=== PATIENT | female | born 1990 | race Caucasian/White ===

== ENCOUNTER 2020-09-07 07:17 | Outpatient (CLI) | payer OTHER, SELFPAY ==
[2020-09-07 07:44] LABS: Basophils Absolute Auto 0.1 K/mm3 (0.0-0.1); Basophils Percent Auto 0.9 % (0.2-1.2); Eosinophils Absolute Auto 0.1 K/mm3 (0-0.3); Eosinophils Percent Auto 0.9 % (0-4.4); Hematocrit 44.4 % (37.0-47.0); Hemoglobin 15.4 g/dL (12.0-15.0); Immature Granulocyte Absolute 0.02 K/mm3 (0.00-0.031); Immature Granulocyte Percent A 0.3 % (0-0.5); Lymphocytes Absolute Auto 1.89 K/mm3 (0.9-3.2); Lymphocytes Percent Auto 32.4 % (18.3-44.2); Mean Corpuscular HGB Conc 34.7 g/dl (32-36); Mean Corpuscular Hemoglobin 30.8 pg (26-34); Mean Corpuscular Volume 88.8 fl (80-100); Monocytes Absolute Auto 0.4 K/mm3 (0.1-0.6); Monocytes Percent Auto 7.2 % (2.6-8.5); Neutrophils Absolute Auto 3.4 K/mm3 (1.3-6.7); Neutrophils Percent Auto 58.3 % (45.5-73.1); Platelet Count Result 203 k/mm3 (150-375); Red Cell Distribution Width 11.8 % (11.5-14.5); White Blood Count 5.8 K/mm3 (4.5-10.0)
[2020-09-07 07:57] LABS: Alanine Aminotransferase 17 U/L (4-35); Albumin Level 4.7 g/dL (3.5-5.1); Alkaline Phosphatase 48 U/L (38-126); Anion Gap 9 mmol/L (8-16); Aspartate Amino Transferase 28 U/L (14-36); Bilirubin,Total 0.8 mg/dL (0.2-1.3); Blood Urea Nitrogen 14 mg/dL (7-17); Carbon Dioxide 26 mmol/L (22-30); Chloride 104 mmol/L (98-107); Estimated Glomerular Filt Rate > 60; Glucose 100 mg/dL (65-105); Potassium 3.9 mmol/L (3.4-5.0); Sodium 139 mmol/L (137-145)
[2020-09-07 08:28] LABS: Thyroid Stimulating Hormone 0.978 uIU/mL (0.465-4.680)
== END 2020-09-07 07:18 | disposition home or self-care (01) ==
LOC: ANHLAB 07:23
PROVIDERS: PCP Family Medicine; Visit Provider Obstetrics & Gynecology
DX: R53.83 Other fatigue (principal)
CPT/HCPCS: 36415; 80053; 84443; 85025

== ENCOUNTER 2021-04-21 08:43 | Outpatient (CLI) | payer OTHER, SELFPAY ==
[2021-04-21 11:07] LABS: Basophils Absolute Auto 0.1 K/mm3 (0.0-0.1); Basophils Percent Auto 0.7 % (0.2-1.2); Eosinophils Absolute Auto 0.1 K/mm3 (0-0.3); Eosinophils Percent Auto 1.2 % (0-4.4); Hematocrit 39.2 % (37.0-47.0); Immature Granulocyte Absolute 0.02 K/mm3 (0.00-0.031); Immature Granulocyte Percent A 0.3 % (0-0.5); Lymphocytes Absolute Auto 2.54 K/mm3 (0.9-3.2); Lymphocytes Percent Auto 34.9 % (18.3-44.2); Mean Corpuscular HGB Conc 33.2 g/dl (32-36); Mean Corpuscular Hemoglobin 30.4 pg (26-34); Mean Corpuscular Volume 91.6 fl (80-100); Mean Platelet Volume 10.1 fl (7.4-10.4); Monocytes Absolute Auto 0.5 K/mm3 (0.1-0.6); Monocytes Percent Auto 6.6 % (2.6-8.5); Neutrophils Absolute Auto 4.1 K/mm3 (1.3-6.7); Neutrophils Percent Auto 56.3 % (45.5-73.1); Platelet Count Result 240 k/mm3 (150-375); Red Blood Count 4.28 M/mm3 (4.2-5.4); Red Cell Distribution Width 12.4 % (11.5-14.5); White Blood Count 7.3 K/mm3 (4.5-10.0)
[2021-04-21 11:16] LABS: Anion Gap 7 mmol/L (8-16); Blood Urea Nitrogen 12 mg/dL (7-17); Calcium 8.9 mg/dL (8.4-10.2); Carbon Dioxide 29 mmol/L (22-30); Chloride 100 mmol/L (98-107); Estimated Glomerular Filt Rate > 60; Glucose 87 mg/dL (65-110); Potassium 3.4 mmol/L (3.4-5.0); Sodium 136 mmol/L (137-145)
[2021-04-21 11:53] LABS: Thyroid Stimulating Hormone Reflex 0.965 uIU/mL (0.465-4.68)
== END 2021-04-21 08:44 | disposition home or self-care (01) ==
PROVIDERS: PCP Family Medicine; Visit Provider Family Medicine
DX: R53.81 Other malaise (principal)
CPT/HCPCS: 36415; 80048; 84443; 85025

== ENCOUNTER 2021-10-04 16:33 | Outpatient (CLI) | payer OTHER, SELFPAY ==
[2021-10-04 18:01] LABS: Anion Gap 11 mmol/L (8-16); Blood Urea Nitrogen 17 mg/dL (7-17); Calcium 9.4 mg/dL (8.4-10.2); Carbon Dioxide 30 mmol/L (22-30); Chloride 97 mmol/L (98-107); Estimated Glomerular Filt Rate > 60; Glucose 120 mg/dL (65-110); Sodium 138 mmol/L (137-145)
== END 2021-10-04 16:34 | disposition home or self-care (01) ==
LOC: ANHLAB 16:36
PROVIDERS: PCP Family Medicine; Visit Provider Family Medicine
DX: E87.6 Hypokalemia (principal)
CPT/HCPCS: 36415; 80048

== ENCOUNTER 2021-10-21 07:45 | Outpatient (CLI) | payer OTHER, SELFPAY ==
[2021-10-21 09:08] LABS: Anion Gap 9 mmol/L (8-16); Blood Urea Nitrogen 13 mg/dL (7-17); Calcium 8.8 mg/dL (8.4-10.2); Carbon Dioxide 25 mmol/L (22-30); Chloride 106 mmol/L (98-107); Estimated Glomerular Filt Rate > 60; Glucose 99 mg/dL (65-110); Magnesium 2.2 mg/dL (1.6-2.3); Potassium 3.9 mmol/L (3.4-5.0); Sodium 140 mmol/L (137-145)
== END 2021-10-21 07:46 | disposition home or self-care (01) ==
LOC: ANHLAB 07:49
PROVIDERS: PCP Family Medicine
DX: R00.2 Palpitations (principal); R42 Dizziness and giddiness; R55 Syncope and collapse; E87.6 Hypokalemia; F17.210 Nicotine dependence, cigarettes, uncomplicated
CPT/HCPCS: 36415; 80048; 83735

== ENCOUNTER 2022-10-24 09:40 | Outpatient (CLI) | payer OTHER, SELFPAY ==
[2022-10-29 01:48] LABS: ANCA Screen Negative (Negative); Myeloperoxidase Ab <1.0 AI (<1.0); Proteinase-3 Ab <1.0 AI (<1.0); S cerevisiae Ab (IgA) 4.6 U (<=20.0); S cerevisiae Ab (IgG) 7.4 U (<=20.0)
== END 2022-10-24 09:41 | disposition home or self-care (01) ==
LOC: ANHLAB 09:42
PROVIDERS: PCP Family Medicine; Visit Provider Internal Medicine Gastroenterology
DX: R19.7 Diarrhea, unspecified (principal); R63.4 Abnormal weight loss
CPT/HCPCS: 36415; 86036; 86671

== ENCOUNTER 2022-10-26 07:32 | Outpatient (CLI) | payer OTHER, SELFPAY ==
[2022-11-02 22:13] LABS: Calprotectin, Stool 69 mcg/g
== END 2022-10-26 07:33 | disposition home or self-care (01) ==
PROVIDERS: PCP Family Medicine; Visit Provider Internal Medicine Gastroenterology
DX: R19.7 Diarrhea, unspecified (principal); R63.4 Abnormal weight loss
CPT/HCPCS: 83993

== ENCOUNTER 2022-11-15 15:55 | Outpatient (CLI) | payer OTHER, SELFPAY ==
[2022-11-21 20:50] LABS: HSV 1 IgM Screen Negative (Negative); HSV 2 IgM Screen Negative (Negative)
== END 2022-11-15 15:56 | disposition home or self-care (01) ==
LOC: ANHLAB 15:59
PROVIDERS: PCP Family Medicine
DX: B02.9 Zoster without complications (principal)
CPT/HCPCS: 36415; 86695; 86696

== ENCOUNTER 2022-12-26 10:35 | Outpatient (CLI) | payer OTHER, SELFPAY ==
--- NOTE | ~2022-12-26 | US_ITS ---
Abdominal Sonogram: Real-time sonographic imaging of the abdomen was performed. Clinical History: Abdominal pain Findings: The liver appears normal with no evidence of mass lesion or bile duct dilatation. Main por leonie vein demonstrates normal direction of flow. The spleen is normal in size without evidence of foca l lesion. The gallbladder is well distended, and appears normal with no evidence of gallstone or wal l thickening. The common bile duct measures 4 mm. The visualized pancreas, aorta, and IVC are unrema rkable. The right kidney measures 10.5 cm in length and the left kidney measures 11.4 cm. There is no hydronephrosis or renal calculus. Impression: Unremarkable abdominal ultrasound. Reviewed, dictated and finalized at location . Impression: Unremarkable abdominal ultrasound.
== END 2022-12-26 10:36 | disposition home or self-care (01) ==
PROVIDERS: PCP Family Medicine; Visit Provider Family Medicine
DX: R10.11 Right upper quadrant pain (principal)
CPT/HCPCS: 76700

== ENCOUNTER 2023-01-27 12:34 | Outpatient (CLI) | payer OTHER, SELFPAY ==
--- NOTE | ~2023-01-27 | MR_ITS ---
MRI of the brain Clinical History: Migraine headache Technique: Axial and sagittal T1-weighted images were acquired. These were followed by axial T2-weigh bailey, diffusion weighted, gradient, and FLAIR images. Following intravenous administration of 9 cc Mu ltiHance gadolinium, T1-weighted fat-sat imaging was performed in the axial and coronal planes. Findings: No abnormal signal seen in the brain parenchyma. No acute infarct, intracranial hemorrhage, or mass lesion. Ventricles and subarachnoid spaces are unremarkable. Orbits are unremarkable. Paranasal sinuses and m astoid air cells are clear. Major intracranial flow voids appear intact. Sagittal midline structures are intact. No abnormal postcontrast enhancement. IMPRESSION: Unremarkable exam. Reviewed, dictated and finalized at location M. IMPRESSION: Unremarkable exam.
== END 2023-01-27 12:35 | disposition home or self-care (01) ==
PROVIDERS: PCP Family Medicine; Visit Provider Family Medicine
DX: G43.909 Migraine, unspecified, not intractable, without status migrainosus (principal)
CPT/HCPCS: 70553; A9577

== ENCOUNTER 2023-11-13 07:46 | Outpatient (CLI) | payer OTHER, SELFPAY ==
[2023-11-13 08:59] LABS: Basophils Percent Auto 0.3 % (0.2-1.2); Eosinophils Percent Auto 0.1 % (0-4.4); Hematocrit 43.8 % (37.0-47.0); Hemoglobin 14.9 g/dL (12.0-15.0); Immature Granulocyte Absolute 0.05 K/mm3 (0.00-0.031); Immature Granulocyte Percent A 0.4 % (0-0.5); Lymphocytes Absolute Auto 1.51 K/mm3 (0.9-3.2); Lymphocytes Percent Auto 13.4 % (18.3-44.2); Mean Corpuscular Hemoglobin 31.2 pg (26-34); Mean Corpuscular Volume 91.8 fl (80-100); Mean Platelet Volume 10.7 fl (7.4-10.4); Monocytes Absolute Auto 0.6 K/mm3 (0.1-0.6); Monocytes Percent Auto 5.7 % (2.6-8.5); Neutrophils Absolute Auto 9.1 K/mm3 (1.3-6.7); Neutrophils Percent Auto 80.1 % (45.5-73.1); Platelet Count Result 225 k/mm3 (150-375); Red Blood Count 4.77 M/mm3 (4.2-5.4); Red Cell Distribution Width 11.8 % (11.5-14.5); White Blood Count 11.3 K/mm3 (4.5-10.0)
[2023-11-13 09:01] LABS: Alanine Aminotransferase 28 U/L (6-35); Albumin Level 4.6 g/dL (3.5-5.1); Alkaline Phosphatase 66 U/L (38-126); Anion Gap 6 mmol/L (8-16); Aspartate Amino Transferase 33 U/L (14-36); Bilirubin,Total 1.2 mg/dL (0.2-1.3); Blood Urea Nitrogen 14 mg/dL (7-17); CRP < 0.5 mg/dL (<1.0); Calcium 9.1 mg/dL (8.4-10.2); Carbon Dioxide 27 mmol/L (22-30); Chloride 101 mmol/L (98-107); Estimated Glomerular Filt Rate > 60; Glucose 101 mg/dL (65-110); Magnesium 2.2 mg/dL (1.6-2.3); Potassium 3.6 mmol/L (3.4-5.0); Sodium 134 mmol/L (137-145)
[2023-11-13 09:29] LABS: Thyroid Stimulating Hormone 0.558 uIU/mL (0.465-4.680)
[2023-11-13 09:36] LABS: Erythrocyte Sedimentation Rate 2 mm/hr (0-20)
[2023-11-13 09:56] LABS: Free T4 Free Thyroxine 1.24 ng/mL (0.78-2.19)
[2023-11-15 15:30] LABS: Arsenic, Blood <3 mcg/L (<23); Lead, Blood <1.0 mcg/dL (<3.5); Mercury, Blood <4 mcg/L (<=10)
[2023-11-29 15:48] LABS: Collection Sample Blood
== END 2023-11-13 07:47 | disposition home or self-care (01) ==
PROVIDERS: PCP Family Medicine; Visit Provider Family Medicine
DX: R20.2 Paresthesia of skin (principal); R53.81 Other malaise; M79.10 Myalgia, unspecified site; R63.4 Abnormal weight loss
CPT/HCPCS: 36415; 80053; 82175; 83655; 83735; 83825; 84439; 84443; 85025; 85652; 86038; 86140

== ENCOUNTER 2024-02-08 11:32 | Outpatient (CLI) | payer OTHER, SELFPAY ==
--- NOTE | ~2024-02-08 | XR_ITS ---
3 VIEWS LUMBAR SPINE Ordering provider: Jama Azevedo History: . CHRONIC LBP WORSENING X 3 YRS NKI HX SCOLIOSIS . Comparison: None. FINDINGS: VERTEBRAL BODIES: No visible fracture or subluxation. Levoscoliosis. DISK SPACES: Normal. SOFT TISSUES: Normal. IMPRESSION: No acute osseous abnormality lumbar spine. Reviewed, dictated and finalized at location A.
[2024-02-12 10:29] LABS: HLA B27 NEGATIVE (NEGATIVE)
== END 2024-02-08 11:33 | disposition home or self-care (01) ==
PROVIDERS: PCP Family Medicine
DX: M54.50 Low back pain, unspecified (principal)
CPT/HCPCS: 36415; 72100; 86812

== ENCOUNTER 2024-02-14 08:00 | Outpatient (RCR) | payer OTHER, SELFPAY ==
--- NOTE | 2023-11-29 16:21 | PTOPEVAL1 ---
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; previously was 40 hr/week and had to cut down about 1 year ago due to more pain with working Reported Pain Level Pain Score Self Report Additional Pain Score Comments pain range in the past week 5-10/10; entire spine: [id number]-[id number], headaches discomfort, pressure over spine; burning over thoracic and upper lumbar, headaches, L shoulder pain-pops and grinds; have to constantly adjust back increase pain: sitting 10-15 minutes; walking 20-25 min; sleep 4- 6 hours/night decrease pain: heat, change position, over the counter meds problems falling asleep and wake up 1-2x/night Assessment PT Clinical Summary Nomi has the diagnosis of neck and back pain. She has chronic issues with pain and scoliosis. Self assessment Oswestry back score of 42% limitation in activity--limited sitting, walking and sleeping tolerances. She does not perform any fitness exercises. With the evaluation: she has good flexibility of her hips, neck and shoulders, with pain increase, and decrease flexibility of her trunk in standing; weakness over UE's, trunk and LE's--with mat exercises could not perform more than 10 reps; standing posture of shoulders, trunk and hips is poor; had the most pain reported with L shoulder and neck motions. Skilled PT services are indicated for modalities to decrease harris
--- NOTE | 2023-11-29 16:22 | OPREHPOC ---
Outpatient Therapy Plan of Care This is a Multidisciplinary Plan of Care that may contain components documented by all disciplines (PT, OT, and ST.) PT Problem 1 PT Problem #1 Knowledge Deficit PT Goal 1 Goal *indep with HEP *use correct position of body with exercises PT Problem 2 PT Problem #2 Pain PT Goal 1 Goal 1* overall pain rating of 7/10 at worst 2* self assessment Oswestry score of 30% limitation in activity 3* pt report with sleeping, tolerance of 6 hours 4* pt report walking tolerance of 45 minutes PT Problem 3 PT Problem #3 Impaired Strength PT Goal 1 Goal increase strength to improve stability to spine, posture and activity tolerance: 1* single leg standing R 20 seconds with good stability 2* single leg standing L 20 seconds with good stability 3* pt perform 20 reps of prone shoulder strengthening exercises 4* pt perform R LE mat exercises x 20 reps with good stability 5* pt perform L LE mat exercises x 20 reps with good stability
--- NOTE | 2024-01-01 15:44 | PTOPPROG ---
Assessment and note entered by Paola Martinez, PT Evaluation Information Assessment Status Progress Diagnosis neck and back pain, chronic pain Onset August 2023 Subjective Information feel like she is stronger, walking better and able to catch herself, not veering as much to the side ; have been trying to not do as much heavy work and lifting- only the laundry basket at home; did not like the stim or traction for her neck--felt good at the time, but hurt more the next day with spasms after stim and migraine after the traction; want to continue therapy to get stronger and have less pain. Assessment PT Clinical Summary Nomi has received 8 PT sessions. Compared to the initial evaluation: overall/ generalized pain rating- 5-10/10 and now 4-10/10; reported walking and sleeping tolerances have improved; Oswestry self assessment 42% to 40% limitation in activity level; increase shoulder, trunk and LE strength; education on HEP and posture/body mechanics; The goals were partially achieved. Continue PT treatments. Plan of Care Interventions Electrical Stimulation,Hot Pack/Cold Pack,Manual Therapy,Mechanical Traction,Neuro Re-education, Patient Education,Therapeutic Activities, Therapeutic Exercise,Self-Care/Home Management, Ultrasound,Other Other Interventions taping, IASTM PT Services Indicated Yes Treatment Frequency and 2x/wk for 8 additional visits Duration These treatments will address the objective and functional deficits as defined above. The patient will be advanced safely and appropriately in order for the patient to progress towards his/her prior level of function. Additional exercises will be introduced and as well as a comprehensive home exercise program upon discharge, if needed, ?to ensure carryover of functional gains achieved in the clinic. This treatment plan has been reviewed and agreement upon by the patient.
--- NOTE | 2024-02-14 08:48 | PTOPDC ---
Assessment and note entered by Paola Martinez, PT Discharge Report Assessment Status Discharge Diagnosis neck and back pain, chronic pain Onset August 2023 Subjective Information doing all of the exercises; walking is better- walk straight, not veer or drunk walk; therapy really has helped; Reported Pain Level Pain Score Self Report Additional Pain Score Comments neck with more pain in the last week; pain range of neck in the past week 4-7/10; shoulder pain and headaches/migraines more; pain range of back in past week: 3-4/10 report sleeping tolerance: 4-5 hours a night; walking tolerance is not limited, can be up as much as need to; Assessment PT Clinical Summary Nomi has received 15 PT sessions. Compared to the last reevaluation: overall pain rating of neck and back from 4-10/10 to neck 4-7/ 10 and back 3-4/10; reported tolerances with sleeping decreased from 5-6 hours to 4-5 hours & walking tolerance from 8 hours to not limited; self assessment Oswestry from 40% to 24% limitation in activity; increase LE and trunk strength with single leg press 40# to 60# x 10 reps & supine exercises with 3# ankle wt; gait pattern has improved with more trunk stability and straighter path/ no veering; education completed for HEP- comprehensive for neck and back/ LE strengthening and stretching and posture, pain management. The goals were met, except reported sleeping tolerance. Discharge PT services; she is to continue with her HEP. Plan of Care PT Services Indicated No
== END 2024-02-14 11:49 | disposition home or self-care (01) ==
LOC: ANHPT 08:00
PROVIDERS: PCP Family Medicine; Visit Provider Family Medicine
DX: M54.50 Low back pain, unspecified (principal)
CPT/HCPCS: 97012; 97014; 97110; 97140; 97162; 97530; G0283

== ENCOUNTER 2024-06-02 09:20 | Outpatient (CLI) | payer OTHER, SELFPAY ==
--- NOTE | ~2024-06-02 | XR_ITS ---
EXAMINATION: XR_CERV2-3V_CR DATE: 06/02/2024 09:36 INDICATION: Neck pain. TECHNIQUE: 3 views of cervical spine were obtained. COMPARISON: None. FINDINGS: There is 10 degrees levoscoliosis of cervicothoracic spine. Vertebral body heights are norm al. Intervertebral disc heights are normal. There is multilevel mild facet joint osteoarthritis. On t he right, there is mild uncovertebral joint osteoarthritis at C4-C5. No central canal stenosis or pre vertebral soft tissue swelling. IMPRESSION: 1. Mild cervical spondylosis. 2. Cervicothoracic levoscoliosis. Reviewed, dictated and finalized at location A.
== END 2024-06-02 09:21 | disposition home or self-care (01) ==
PROVIDERS: PCP Family Medicine; Visit Provider Family Medicine
DX: M47.892 Other spondylosis, cervical region (principal)
CPT/HCPCS: 72040

== ENCOUNTER 2024-09-29 14:41 | Outpatient (RCR) | payer OTHER, SELFPAY ==
--- NOTE | 2024-09-24 08:33 | PCPTNOTE ---
This treatment is being continued from visit number [id number] Please see documentation on both accounts to view progress. Completed interventions, outcomes, and problems have been marked as Inactive to facilitate the copying of the Care plan routine for recurring accounts.
--- NOTE | 2024-09-29 11:58 | PTOPDC ---
Assessment and note entered by Paola Martinez, PT Assessment Status Discharge ICD-10 Condition Codes (PT) Cervicalgia M54.2 Onset Apr 2024 Subjective Information the manual traction, electrical stim and heat have been helping the pain; the pain comes back when do not have therapy; going to see a new dr for the pain; having more back pain and pressure in trunk, have thrown up after eating with food stuck and solid when she throws up; have not got the neck inflatable stretching thing yet; going to order. Reported Pain Level Pain Score Self Report Additional Pain Score Comments pain range in the past week 5-08/06 neck pain; have headaches daily-last all day, base of head over head to forehead; migraine is once/week-have to lie down and lights off with migraine meds; decrease pain: tylenol, over the counter meds, heat increase pain: turning head and looking down, when first wake up in AM education: use of occipital release tool for self massage over cervical spasms; electrical stim home unit with pad placement and use of unit for 10-15 minutes; inflatable cervical collar for traction to cervical spine; continue stretching for decrease spasms and tightness over cervical spine and upper traps Assessment PT Clinical Summary Nomi has received a total of 12 PT sessions. Compared to the last assessment: pain rating from 4-9/10 to 5-13/10; numbness and tingling L UE, now in both UE's and continues to have pain in L shoulder; continues to have headaches all the time, last all day, with migraines occur about 1x/ week; with sleeping, awaken due to neck pain from 2x to 1x/night; increase cervical rotation to R and L, with both increase neck pain, and flexion also increases pain; self assessment with neck index rating from 40% to 36% limitation in activity level; continues to have spasms and tenderness over R and L cervical and upper traps areas. Education for HEP, pain control and posture. The goals were partially met. Discharge PT services. She is to continue with her HEP and pain control techniques. Plan of Care PT Services Indicated No
== END 2024-09-29 14:42 | disposition home or self-care (01) ==
LOC: ANHPT 14:41
PROVIDERS: PCP Family Medicine
DX: M54.2 Cervicalgia (principal)
CPT/HCPCS: 97014; 97110; 97140; G0283

== ENCOUNTER 2024-11-17 12:33 | Outpatient (CLI) | payer OTHER, SELFPAY ==
--- NOTE | ~2024-11-17 | MR_ITS ---
EXAMINATION: MR cervical spine wo con DATE: 11/17/2024 13:25 INDICATION: Bilateral numbness and tingling of the arms and legs TECHNIQUE: Magnetic resonance imaging (MRI) of the cervical spine was performed without intravenous c ontrast. Sequences included sagittal T2-weighted FSE, sagittal T2-weighted FS FSE, sagittal T1-weight ed FSE, axial MERGE and axial T2-weighted FSE. COMPARISON: None FINDINGS: Bone alignment is normal. Vertebral body heights are normal. T2 hyperintense hemangiomas which remai n T1 isointense to the surrounding marrow and with mild fat saturation consistent with hemangiomas th e C5 and T2 vertebral bodies. Bone marrow signal intensity is otherwise normal. Mild disc height loss at C4-C5 and C5-C6. Cord signal intensity is normal with some linear artifact projecting over the co rd on the sagittal images. Cervical soft tissues are unremarkable. The following disc levels are spec ifically discussed: C2-C3: The disc does not extend beyond the endplate margin. There is no uncovertebral joint osteoarth ritis. There is mild left facet joint osteoarthritis. There is no neural foraminal stenosis. There is no central canal stenosis. C3-C4: The disc does not extend beyond the endplate margin. There is no uncovertebral joint osteoarth ritis. There is mild left facet joint osteoarthritis. There is no neural foraminal stenosis. There is no central canal stenosis. C4-C5: Small right paracentral disc protrusion which slightly flattens the right ventral surface of t he cord. There is bilateral, right greater than left uncovertebral joint osteoarthritis. There is mod erate left facet joint osteoarthritis. There is mild right neural foraminal stenosis. There is mild c entral canal stenosis. C5-C6: Disc is mildly bulging. There is mild bilateral left greater than right uncovertebral joint os teoarthritis. There is mild bilateral facet joint osteoarthritis. There is mild left neural foraminal stenosis. There is mild central canal stenosis. C6-C7: The disc does not extend beyond the endplate margin. There is mild left uncovertebral joint os teoarthritis. There is mild bilateral, left greater than right facet joint osteoarthritis. There is m ild left neural foraminal stenosis. There is no central canal stenosis. C7-T1: The disc does not extend beyond the endplate margin. There is no uncovertebral joint osteoarth ritis. There is mild bilateral facet joint osteoarthritis. There is mild left neural foraminal stenos is. There is no central canal stenosis. IMPRESSION: 1. Mild cervical spondylosis. Reviewed, dictated and finalized at location B.
--- NOTE | ~2024-11-17 | MR_ITS ---
EXAMINATION: MR lumbar spine wo con, MR thoracic spine wo con DATE: 11/17/2024 13:49 INDICATION: Bilateral numbness and tingling of the arms and legs TECHNIQUE: 1. Magnetic resonance imaging (MRI) of the thoracic spine was performed without intravenous contrast. Sagittal localizer T1-weighted FSE of the cervicothoracic spine was obtained. Thoracic spine sequenc es included sagittal T2-weighted FSE, sagittal T1-weighted SE, Sagittal T2-weighted FS FSE, and axial T2-weighted FSE. 2. MRI of the lumbar spine was performed without intravenous contrast. Sequences included sagittal T2 -weighted FSE, sagittal T2-weighted FS FSE, sagittal T1-weighted FSE, and axial T2-weighted FSE. COMPARISON: None FINDINGS: Thoracic spine: 20 degree thoracic dextroscoliosis measured between T5 and T9. 32 degrees thoracolumbar levoscoliosis measured between T10 and L3. Sagittal alignment is normal. At the apex of the curvature there is mil d left anterior vertebral body height loss at T7. Remaining thoracic vertebral body heights are ortega l. There are several scattered T2 hyperintense lesions in the spine and the majority also a T1 hyperi ntense consistent with hemangiomas. One at T11 demonstrates lower T1 signal but still minimally hyper intense to the discs and skeletal muscle is likely representing an atypical hemangioma.Otherwise norm al marrow signal. There is mild left-sided disc height loss associated with the curvature from T5 C6 to T8-T9 and mild right-sided disc height loss associated with the thoracolumbar levoscoliosis at T10 -T11 through L1-L2. The discs do not extend beyond the endplate margins with no central canal stenosi s. There is normal spinal cord signal. There is multilevel mild thoracic facet osteoarthritis. Mild n eural foraminal stenosis on the left at T8-T9 and T9-T10. Paravertebral soft tissues are unremarkable . Lumbar spine: Sagittal alignment is normal. Vertebral body heights are normal. A few additional T1 and T2 hyperinte nse meningiomas in the lumbar spine. As previous noted there is mild right-sided disc height loss ass ociated with the levoscoliosis at T12-L1 and L1-L2. Mild disc desiccation and mild left-sided predomi nant disc height loss at L4-L5. The conus terminates at L1. Paravertebral soft tissues are unremarkab le. The following disc levels are specifically discussed: T12-L1: Disc is minimally bulging. There is mild bilateral facet joint osteoarthritis. There is no ne ural foraminal stenosis. There is no central canal stenosis. L1-L2: Minimal right subarticular zone disc protrusion. There is mild left and moderate right facet j oint osteoarthritis. There is mild right neural foraminal stenosis. There is no central canal stenosi s. L2-L3: The disc does not extend beyond the endplate margin. There is left and moderate right facet benedict int osteoarthritis. There is no neural foraminal stenosis. There is no central canal stenosis. L3-L4: Disc is mildly bulging. There is mild bilateral facet joint osteoarthritis. There is mild left neural foraminal stenosis. There is no central canal stenosis. L4-L5: Disc is bulging with annular fissure. There is mild bilateral facet joint osteoarthritis. Ther e is mild right and mild to moderate left neural foraminal stenosis. There is negligible central virgil l stenosis with mild narrowing of the left lateral recess. L5-S1: The disc does not extend beyond the endplate margin. There is mild to moderate bilateral facet joint osteoarthritis. There is no neural foraminal stenosis. There is no central canal stenosis. IMPRESSION: 1. S-shaped thoracolumbar scoliosis with mild spondylosis. Reviewed, dictated and finalized at location B. IMPRESSION: 1. S-shaped thoracolumbar scoliosis with mild spondylosis.
--- OUTSIDE RECORDS SUMMARY | 2024-11-17 14:12 | XMS_ITS | Clinical Summary ---
Author Organization [facility] Address [address] [place] [address] Care Team Providers Care Scene Painter Name Role Phone Krys Zamora MD Primary Care Provider [phone] Source Comments [facility],non-owned Affiliates and Associated Physician Practices is amultiple site organization consisting of ambulatory clinics and hospital sitesin [place], [place], [place] and [place]. This disclosure is being madepursuant to the Care Everywhere program and may not contain all information available regarding this patient. Last updated 18.[facility] Allergies No known active allergies Active Problems Problem Noted Date Diagnosed Date Second 07/31/2018 Social History Tobacco Use Types Packs/Day Years Used Date Smoking Tobacco: Never Assessed Sex and Gender Information Value Date Recorded Sex Assigned at Not on file Gender Identity Not on file Sexual Orientation Not on file Plan of Treatment Health Maintenance Due Date Last Done Comments PAP SMEAR 1990 HIV SCREENING 2005 HEPATITIS C SCREENING 03/16/2008 DTAP/TDAP/TD VACCINES (1 - Tdap) 2009 HEPATITIS B VACCINE (1 of 3 - 19+ 3-dose series) 2009 COVID-19 VACCINE ( - 2023-2 5 season) 2024 INFLUENZA VACCINE (#1) 2024 DEPRESSION SCREENING 08/27/2024 ZOSTER VACCINE (1 of 2) 2040 HIB VACCINE Aged Out No longer eligi ble based on patient's age to complete this topic HPV VACCINE Aged Out No longer eligi ble based on patient's age to complete this topic MENINGOCOCCAL (Group B) VACC INE SHARED DECISION-MAKING Aged Out No longer eligibl e based on patient's age to complete this topic MENINGOCOCCAL GROUPS A/C/Y/W VACCINE Aged Out No longer eligible b ased on patient's age to complete this topic PNEUMOCOCCAL VACCINE Aged Out No long er eligible based on patient's age to complete this topic Care Teams Scene Painter Relationship Specialty Start Date End Date Krys Zamora MD [address] [facility] [address] [place] [id number] PCP - General Family Medicine 08/05/18
--- OUTSIDE RECORDS SUMMARY | 2024-11-17 14:12 | XMS_ITS | Referral Summary ---
Author Organization [facility] Address [address] [place] [address] Care Team Providers Care Mental Hygiene Consultant Name Role Phone Krys Zamora MD Primary Care Provider [phone] Allergies Active Allergy Reactions Criticality Noted Date Comments Diphenhydramine Unknown 10/12/2013 Dizziness/Light Headed Ibuprofen Unknown 10/12/2013 Headache Medications Lacto.acidophil us-Bif.animalis 32 billion cell capsule Take 1 capsule by mouth 3 times daily Active multivitamin with minerals (Multiple Vitamin-Mineral s) tablet Take 1 tablet by mouth daily Active Active Problems Problem Noted Date Diagnosed Date Herpes zoster 06/18/2022 Acne 11/14/2021 Shoulder pain 11/14/2021 Palpitations 10/07/2021 Postural dizziness with presyncope 10/07/2021 Hypokalemia 10/07/2021 Family history of premature coronary artery dise ase 10/07/2021 Cigarette nicotine dependence without complicati on 10/07/2021 Social History Tobacco Use Types Packs/Day Years Used Date Smoking Tobacco: Every Day Cigarettes Smokeless Tobacco: Never Tobacco Cessation:Ready to Q uit: Not Asked; Counseling Given: Not Answered Alcohol Use Standard Drinks/Week Comments Not Currently 0 (1 standard drink = 0.6 oz pur e alcohol) Personal Safety Answer Date Recorded Getting School Help Needed Not on file 10/06 Comments No Sex and Gender Information Value Date Recorded Sex Assigned at Not on file Legal Sex Female 7:46 PM FISHERIES SPECIALIST Gender Identity Not on file Sexual Orientation Not on file Last Filed Vital Signs Vital Sign Reading Time Taken Comments Blood Pressure 114/68 07/13/2022 10:17 AM FISHERIES SPECIALIST Pulse 76 07/13/2022 10:17 AM FISHERIES SPECIALIST Temperature 36.3 C (97.3 F) 01/09/2022 1:19 PM CDT Respiratory Rate 16 09/30/2021 9:32 PM FISHERIES SPECIALIST Oxygen Saturation 100% 07/13/2022 10:17 AM FISHERIES SPECIALIST Inhaled Oxygen Concentration - - Weight 49.9 kg (110 lb) 07/13/2022 10:17 AM FISHERIES SPECIALIST Height 165.1 cm (5' 5 ) 07/13/2022 10:17 AM FISHERIES SPECIALIST Body Mass Index 18.3 07/13/2022 10:17 AM FISHERIES SPECIALIST Plan of Treatment Not on file [place] [id number] [facility] H[facility]/PPO Address: [address] [address] [facility] H[facility]/PPO Address: [address] [place], [place] [id number] Care Teams Mental Hygiene Consultant Relationship Specialty Start Date End Date Krys Zamora MD [address] [place] [address] PCP - General Family Practice 09/30/21
--- OUTSIDE RECORDS SUMMARY | 2024-11-17 14:12 | XMS_ITS | Clinical Summary ---
Author Organization [facility] Address [address] [place] [address] Care Team Providers Care College Or [employer] Business Manager Name Role Phone Krys Zamora MD Primary Care Provider [phone] Allergies Active Allergy Reactions Criticality Noted Date Comments Diphenhydramine Unknown 10/12/2013 Dizziness/Light Headed Ibuprofen Unknown 10/12/2013 Headache Omeprazole Other (see comment) 07/09/2023 Constipation, dry mouth Medications multi vitamin/mineral s tablet Take 1 tablet by mouth daily. Active probiotic Cap capsule Take 1 capsule by mouth 3 (three) times daily with meals. Active valACYclovir 1 g tablet Take 1 tablet (1,000 mg total) by mouth 3 (three) times daily. 21 tablet 2 Active Additional Information Patient not taking.Reported on 04/06/2023 magnesium oxide (MAG-OX) 400 (240 Mg) MG tablet Take 1 tablet (400 mg total) by mouth daily. 3 Active prochlorperazin e (COMPAZINE) 10 MG tablet Take 1 tablet (10 mg total) by mouth 3 (three) times daily. PRN per pt 3 Active SUMAtriptan (IMITREX) 50 MG tablet PRN per pt 3 Active Na sulfate-K sulfate-Mg sulfate (SUPREP BOWEL PREP KIT) 17.5-3.13-1.6 GM/177ML SolutionIndicat ions:Irregular bowel habits,Generali zed abdominal pain Take 177 mLs by mouth every 12 (twelve) hours. Per GI instructions 354 mL 3 Active Additional Information Patient not taking.Reported on 07/27/2023 pantoprazole EC (PROTONIX) 40 MG tabletIndicatio ns:Heartburn Take 1 tablet (40 mg total) by mouth daily. 30 tablet 2 Active fexofenadine (LUCIA) 180 MG tablet Take 1 tablet (180 mg total) by mouth daily. Active famotidine (PEPCID) 10 MG tablet Take 1 tablet (10 mg total) by mouth 2 (two) times daily. Active Active Problems Problem Noted Date Diagnosed Date BRBPR (bright red blood per rectum) 04/06/2023 Overview (04/06/2023): Added automatically from request for surgery [id number] Generalized abdominal pain 04/06/2023 Overview (04/06/2023): Added automatically from request for surgery [id number] Irregular bowel habits 04/06/2023 Overview (04/06/2023): Added automatically from request for surgery [id number] Heartburn 04/06/2023 Overview (04/06/2023): Added automatically from request for surgery [id number] Nausea 04/06/2023 Overview (04/06/2023): Added automatically from request for surgery [id number] (HHS/HCC) 12/20/2018 Immunizations Name Administration Dates Next Due MMR (MMRII) 12/21/2018 Family History Medical History Relation Comments Stroke Mother Relation Status Comments Mother Social History Tobacco Use Types Packs/Day Years Used Date Smoking Tobacco: Former Cigarettes 0.3 10 Smokeless Tobacco: Never Tobacco Cessation:Counseling Given: Not Answered Comments:Not every day use Alcohol Use Standard Drinks/Week Comments Yes 0 (1 standard drink = 0.6 oz pur e alcohol) social AUDIT-C Answer Date Recorded Frequency of Alcohol Consumption Never 12/20/2018 Average Number of Drinks Not on file 019 Frequency of Binge Drinking Not on file 11/26 PHQ-2 Answer Date Recorded Patient Health Questionnaire-2 Score 0 07/27/2023 Comments No Sex and Gender Information Value Date Recorded Sex Assigned at Not on file Legal Sex Female 8:00 PM CDT Gender Identity Not on file Sexual Orientation Not on file Last Filed Vital Signs Vital Sign Reading Time Taken Comments Blood Pressure 113/75 07/27/2023 10:22 AM MEDICAL TRANSLATOR Pulse 59 07/27/2023 10:22 AM MEDICAL TRANSLATOR Temperature 36.2 C (97.2 F) 07/27/2023 10:22 AM MEDICAL TRANSLATOR Respiratory Rate 18 07/27/2023 10:22 AM MEDICAL TRANSLATOR Oxygen Saturation 99% 07/27/2023 10:22 AM MEDICAL TRANSLATOR Inhaled Oxygen Concentration - - Weight 49.4 kg (109 lb) 07/27/2023 10:22 AM MEDICAL TRANSLATOR Height 167.6 cm (5' 6 ) 07/27/2023 10:22 AM MEDICAL TRANSLATOR Body Mass Index 17.59 07/27/2023 10:22 AM MEDICAL TRANSLATOR Plan of Treatment Health Maintenance Due Date Last Done Comments Cervical Cancer Screening Pap Smear (Age 30 to 64) Every 3 Years 1990 Annual Physical 1993 Hepatitis C 2008 Cervical Cancer Screening Pap with HPV Testing (Age 30 to 64) Every 5 Years 2020 Cervical Cancer Screening with HPV 2020 COVID-19 Vaccine ( season) 2024 04/09/2021, 04/09/2021, 03/17/2021, Additional history exists Influenza Adult (#1) 2024 06/12/2023, 07/18/20 06 PHQ-2 (Physician [place]) 08/27/2024 07/27/2023 DTaP, Tdap and Td Vaccines (6 - Td or Tdap) 11/18/2028 11/18/2018, 11/02/2010, 01/12/1995, Additional history exists Hepatitis B Vaccines Completed 12/13/2010, 11/02/2010, 04/15/1997, Additional history exists HPV Vaccines Aged Out No longer eligi ble based on patient's age to complete this topic Meningococcal B Vaccine Aged Out No l onger eligible based on patient's age to complete this topic Meningococcal Vaccine Aged Out No konrad son eligible based on patient's age to complete this topic Pneumococcal Vaccine: Pediatrics (0 to 5 Years) and At-Risk Patients (6 to 64 Years) Aged Out No longer eligible based on patient's age to complete this topic RSV Immunizations Under 20 Months Aged Out No longer eligible based on patient's age to complete this topic Care Teams College Or University Business Manager Relationship Specialty Start Date End Date Krys Zamora MD [address] [facility] [address] [place] [address] PCP - General 07/21/11
--- OUTSIDE RECORDS SUMMARY | 2024-11-17 14:12 | XMS_ITS | Clinical Summary ---
Author Organization [facility] Address [address] [place] [address] Care Team Providers Care Laster Hand Name Role Phone Krys Zamora MD Primary Care Provider [phone] Allergies Active Allergy Reactions Criticality Noted Date [...] Cigarette nicotine dependence without complicati on 10/07/2021 Surgical History Surgery Date Site/Laterality Comments TUBAL LIGATION DILATION AND CURETTAGE OF UTERUS Medical History Medical History Date Comments Shingles Family History Medical History Relation Name Comments Heart disease Brother Stroke Mother Relation Name Status Comments Brother Mother Social History Tobacco Use Types Packs/Day [...] on file Legal Sex Female 7:46 PM WINDOWS SERVER SPECIALIST Gender Identity Not on file Sexual Orientation Not on file Obstetrics History Last Filed Vital Signs Vital Sign Reading Time Taken Comments Blood Pressure 114/68 07/13/2022 10:17 AM WINDOWS SERVER SPECIALIST Pulse 76 07/13/2022 10:17 AM WINDOWS SERVER SPECIALIST Temperature 36.3 C (97.3 F) 01/09/2022 1:19 PM CDT Respiratory Rate 16 09/30/2021 9:32 PM WINDOWS SERVER SPECIALIST Oxygen Saturation 100% 07/13/2022 10:17 AM WINDOWS SERVER SPECIALIST Inhaled Oxygen Concentration - - Weight 49.9 kg (110 lb) 07/13/2022 10:17 AM WINDOWS SERVER SPECIALIST Height 165.1 cm (5' 5 ) 07/13/2022 10:17 AM WINDOWS SERVER SPECIALIST Body Mass Index 18.3 07/13/2022 10:17 AM WINDOWS SERVER SPECIALIST Plan of Treatment Health Maintenance Due Date Last Done Comments Cervical Cancer Screening 1990 Depression Screening 1990 Hepatitis C Screening 1990 Varicella Vaccines (1 of 2 - 13+ 2-dose series) 2003 Regular Well Visit/Exam 18-64 2008 Pneumococcal vaccine <65 (1 of 2 - PCV) 2009 Covid-19 Vaccine (3 - season) 2024 04/09/2021, 04/09/2021, 03/17/2021, Additional history exists Influenza Vaccine (#1) 2024 06/15/2023, 2005 DTaP/Tdap/Td Vaccine (6 - Td or Tdap) 11/18/2028 11/18/2018, 11/02/2010, 01/12/1995, Additional history exists Hepatitis B Screening Completed 12/13/2010 , 11/02/2010, 04/15/1997, Additional history exists HPV Vaccines Aged Out No longer eligi ble based on patient's age to complete this topic Insurance [facility] Care Teams Laster Hand Relationship Specialty Start Date End Date Krys Zamora MD [address] [address] PCP - General Family Practice 09/30/21
== END 2024-11-17 12:34 | disposition home or self-care (01) ==
PROVIDERS: PCP Family Medicine; Visit Provider Neurological Surgery
DX: R20.0 Anesthesia of skin (principal); R20.2 Paresthesia of skin; M47.895 Other spondylosis, thoracolumbar region; M41.9 Scoliosis, unspecified; M47.892 Other spondylosis, cervical region
CPT/HCPCS: 72141; 72146; 72148

== ENCOUNTER 2025-05-11 10:32 | Outpatient (CLI) | payer OTHER, SELFPAY ==
--- OUTSIDE RECORDS SUMMARY | 2025-05-11 12:07 | XMS_ITS | Clinical Summary ---
Author Organization [facility] Address [address] [place] [address] Care Team Providers Care Berry Picker Machine Operator Name Role Phone Krys Zamora MD Primary Care Provider [phone] Source Comments [facility],non-owned Affiliates and Associated Physician Practices is amultiple site organization consisting of ambulatory clinics and hospital sitesin [place], [place], [place] and [place]. This disclosure is being madepursuant to the Care Everywhere program and may not contain all information available regarding this patient. Last updated 18.[facility] Allergies No known active allergies Active Problems Problem Noted Date Diagnosed Date Second 07/31/2018 Social History Tobacco Use Types Packs/Day Years Used Date Smoking Tobacco: Never Assessed Comments No Sex and Gender Information Value Date Recorded Sex Assigned at Not on file Legal Sex Female 1:12 PM [employer] Gender Identity Not on file Sexual Orientation Not on file Plan of Treatment Health Maintenance Due Date Last Done Comments HIV SCREENING 2005 HEPATITIS C SCREENING 03/16/2008 DTAP/TDAP/TD VACCINES (1 - Tdap) 2009 HEPATITIS B VACCINE (1 of 3 - 19+ 3-dose series) 2009 HPV VACCINE (1 - 3-dose SCDM series) 2017 DEPRESSION SCREENING 08/27/2024 COVID-19 VACCINE ( - 2023-2 5 season) 2025 INFLUENZA VACCINE (#1) 2025 ZOSTER VACCINE (1 of 2) 2040 HIB [...] patient's age to complete this topic Insurance [facility] MEDICAID - OUT OF STATE MEDICAID - [place] [facility] Care Teams Berry Picker Machine Operator Relationship Specialty Start Date End Date Krys Zamora MD [address] [place], [place] [id number] PCP - General Family Medicine 08/05/18
[2025-05-11 13:05] LABS: Vitamin B12 568.0 pg/mL (239-931)
[2025-05-17 16:08] LABS: Vit. B1, Whole Blood 149.7 nmol/L (66.5-200.0)
== END 2025-05-11 10:33 | disposition home or self-care (01) ==
LOC: ANHLAB 10:36
PROVIDERS: PCP Family Medicine; Visit Provider Psychiatry & Neurology Neurology
DX: G35 Multiple sclerosis (principal)
CPT/HCPCS: 36415; 82607; 82746; 84207; 84425

== ENCOUNTER 2025-06-22 07:00 | Outpatient (CLI) | payer OTHER, SELFPAY ==
--- NOTE | ~2025-06-22 | MR_ITS ---
EXAMINATION: MR thoracic spine wo/w con DATE: 06/22/2025 08:56 INDICATION: Multiple sclerosis. TECHNIQUE: Magnetic resonance imaging (MRI) of the thoracic spine was performed without and with 10 mL MultiHance intravenous contrast. COMPARISON: Thoracic spine MRI 11/17/2024 FINDINGS: There is 16 degrees dextroscoliosis of thoracic spine. Thoracic kyphosis is noted. There is mild chronic anterior wedging of T3-T8 vertebral bodies. Intervertebral disc heights are normal. No discs do not extend beyond the endplate margins. There is multilevel mild facet joint osteoarthritis. No neural foraminal stenosis or central canal stenosis. The spinal cord signal intensity is normal. IMPRESSION: 1. Normal spinal cord. 2. Thoracic dextroscoliosis and kyphosis. Reviewed, dictated and finalized at location E.
--- NOTE | ~2025-06-22 | MR_ITS ---
EXAMINATION: MR cervical spine wo/w con DATE: 06/22/2025 08:56 INDICATION: Multiple sclerosis. TECHNIQUE: Magnetic resonance imaging (MRI) of the cervical spine was performed without and with 10 mL MultiHance intravenous contrast. COMPARISON: Cervical spine MRI 11/17/2024 FINDINGS: There is 4 degrees levocurvature of cervical spine. Vertebral body heights are normal. Intervertebral disc heights are normal. The spinal cord signal intensity is normal. The following disc levels are specifically discussed: C2-C3: The disc does not extend beyond the endplate margin. There is no uncovertebral joint osteoarthritis. There is mild bilateral facet joint osteoarthritis. There is no neural foraminal stenosis. There is no central canal stenosis. C3-C4: The disc does not extend beyond the endplate margin. There is no uncovertebral joint osteoarthritis. There is no facet joint osteoarthritis. There is no neural foraminal stenosis. There is no central canal stenosis. C4-C5: There is a small right central extrusion. There is moderate right and mild left uncovertebral joint osteoarthritis. There is mild bilateral facet joint osteoarthritis. There is mild right neural foraminal stenosis. There is no central canal stenosis. C5-C6: There is a left foraminal extrusion. There is mild right and moderate left uncovertebral joint osteoarthritis. There is mild bilateral facet joint osteoarthritis. There is mild left neural foraminal stenosis. There is mild central canal stenosis. C6-C7: The disc does not extend beyond the endplate margin. There is no uncovertebral joint osteoarthritis. There is mild bilateral facet joint osteoarthritis. There is no neural foraminal stenosis. There is no central canal stenosis. C7-T1: The disc does not extend beyond the endplate margin. There is mild bilateral uncovertebral joint osteoarthritis. There is moderate bilateral facet joint osteoarthritis. There is mild left neural foraminal stenosis. There is no central canal stenosis. IMPRESSION: 1. Normal spinal cord. 2. Mild cervical spondylosis. Reviewed, dictated and finalized at location E.
--- NOTE | ~2025-06-22 | MR_ITS ---
EXAMINATION: MR brain/brain stem wo/w con DATE: 06/22/2025 08:56 INDICATION: Multiple sclerosis. TECHNIQUE: Magnetic resonance imaging (MRI) of the brain and brainstem was performed without and with 10 mL MultiHance intravenous contrast. COMPARISON: Brain MRI 01/27/2023 FINDINGS: There is no intracranial hemorrhage, acute infarction, or abnormal intracranial mass lesion. The ventricles are normal in size. The paranasal sinuses are clear. The orbits are normal. The mastoid air cells are normal. IMPRESSION: 1. Normal brain. Reviewed, dictated and finalized at location E. IMPRESSION: 1. Normal brain.
== END 2025-06-22 07:01 | disposition home or self-care (01) ==
PROVIDERS: PCP Family Medicine; Visit Provider Psychiatry & Neurology Neurology
DX: G35.D Multiple sclerosis, unspecified (principal)
CPT/HCPCS: 70553; 72156; 72157; A9577

== ENCOUNTER 2025-07-13 14:00 | Outpatient (RCR) | payer OTHER, SELFPAY ==
--- NOTE | 2025-05-07 17:30 | OPREHPOC ---
Outpatient Therapy Plan of Care This is a Multidisciplinary Plan of Care that may contain components documented by all disciplines (PT, OT, and ST.) PT Problem 1 PT Problem #1 Knowledge Deficit PT Goal 1 Goal / Goal Update [place] with HEP Target Visit 4 PT Goal 2 Goal / Goal Update Report no hip pain greater than 1/10 for 2 consecutive weeks Target Visit 8 PT Problem 2 PT Problem #2 Impaired Range of Motion PT Goal 1 Goal / Goal Update 1. Demonstrate 45 degrees of sloane hip abduction to reduce pelvic pull 2. Demonstrate minimal to no [place] hip piriformis restriction Target Visit 8 PT Problem 3 PT Problem #3 Impaired Strength PT Goal 1 Goal / Goal Update 1. Improve sloane hip abduction strength to 4+/5 to improve lateral pelvic stability with ADLs 2. Improve sloane hip flexion strength to 4+/5 to improve foot clearance with ADLs Target Visit 8
--- NOTE | 2025-05-07 17:30 | PTOPEVAL1 ---
Assessment and note entered by Iban Wills, PT Evaluation Information Assessment Status Evaluation ICD-10 Condition Codes (PT) Pain in left hip M25.552,Pain in left knee M25.562 Onset Acute Subjective Information Reports that she has been having knee, hip, and back pain chronically. Has history of scoliosis which has definitely attributed to conditions. She fell over a toy a couple weeks ago which she feels may have increased things. She fell on her knee and hip. She also has increased chronic varicose veins in the left leg at this time. Reported Pain Level Pain Score 4: Self Report Assessment PT Clinical Summary Patient presents with signs and symptoms consistent with patellofemoral syndrome. She demonstrates both mobility and strength deficits in hips likely amplifying this issue. Will benefit form skilled therapy to address core weakness and hip weakness contributing to back and hip pain. Plan of Care Interventions Electrical Stimulation,Manual Therapy,Neuro Re- education,Therapeutic Activities,Therapeutic Exercise PT Services Indicated Yes Treatment Frequency and 2x/week for 8 visits Duration These treatments will address the objective and functional deficits as defined above. The patient will be advanced safely and appropriately in order for the patient to progress towards his/her prior level of function. Additional exercises will be introduced and as well as a comprehensive home exercise program upon discharge, if needed, ?to ensure carryover of functional gains achieved in the clinic. This treatment plan has been reviewed and agreement upon by the patient.
--- NOTE | 2025-06-08 14:57 | OPREHPOC ---
Outpatient Therapy Plan of Care This is a Multidisciplinary Plan of Care that may contain components documented by all disciplines (PT, OT, and ST.) PT Problem 1 PT Problem #1 Knowledge Deficit PT Goal 1 Goal / Goal Update [place] with HEP Target Visit 4 Progress Met PT Goal 2 Goal / Goal Update Report no hip pain greater than 1/10 for 2 consecutive weeks Target Visit 16 Progress Not Met PT Problem 2 PT Problem #2 Impaired Range of Motion PT Goal 1 Goal / Goal Update 1. Demonstrate 45 degrees of sloane hip abduction to reduce pelvic pull 2. Demonstrate minimal to no [place] hip piriformis restriction 06/08/25: No piriformis restriction Target Visit 8 Progress Partially Met PT Problem 3 PT Problem #3 Impaired Strength PT Goal 1 Goal / Goal Update 1. Improve [place] hip abduction strength to 4+/5 to improve lateral pelvic stability with ADLs 2. Improve [place] hip flexion strength to 4+/5 to improve foot clearance with ADLs 06/08/25: Needs focused reinforcement Target Visit 16 Progress Partially Met
--- NOTE | 2025-06-08 14:57 | PTOPPROG ---
Assessment and note entered by Iban Wills, PT Evaluation Information Assessment Status Progress ICD-10 Condition Codes (PT) Pain in left hip M25.552,Pain in left knee M25.562 Onset Acute Subjective Information Patient reports overall improvement but still struggles with some weakness in her legs after she has been up for a little while. Pain has been mostly controlled but still struggles throughout work day. Assessment PT Clinical Summary We have seen progress with hip mobility and reduced pain with spinal decompression. Patient continues to show significant weakness left hip and core. She will benefit form continuation of therapy to address these weaknesses for long-term stabilization and functional mobility to reduce pain nd promote increased functional capability. Plan of Care Interventions Electrical Stimulation,Manual Therapy,Neuro Re- education,Therapeutic Activities,Therapeutic Exercise PT Services Indicated Yes Treatment Frequency and 2x/week for 8 visits Duration These treatments will address the objective and functional deficits as defined above. The patient will be advanced safely and appropriately in order for the patient to progress towards his/her prior level of function. Additional exercises will be introduced and as well as a comprehensive home exercise program upon discharge, if needed, ?to ensure carryover of functional gains achieved in the clinic. This treatment plan has been reviewed and agreement upon by the patient.
--- NOTE | 2025-07-13 14:55 | PTOPDC ---
Assessment and note entered by Iban Wills, PT Evaluation Information Assessment Status Discharge ICD-10 Condition Codes (PT) Pain in left hip M25.552,Pain in left knee M25.562 Onset Acute Subjective Information Reports that overall she is doing better. Plans to get an inversion table at home for use due to the effectiveness of traction. No concerns a this time and requests discharge. Reported Pain Level Pain Score 2: Self Report Assessment PT Clinical Summary Patient met majority of goals for therapy at this time and is suitable for discharge to [facility] per request. She plans to move forward with home traction inversion table and HEP. Plan of Care PT Services Indicated Yes
== END 2025-07-13 16:40 | disposition home or self-care (01) ==
LOC: ANHPT 14:00
PROVIDERS: PCP Family Medicine
DX: M25.552 Pain in left hip (principal)
CPT/HCPCS: 97110; 97112; 97140; 97161; 97530